=== PATIENT | male | born 1950 | race Native Hawaiian/Other Pacific Islander ===

== ENCOUNTER 2022-08-13 10:33 | Outpatient (CLI) | payer BC ==
[2022-08-13 11:26] LABS: PLATELET COUNT 163 K/uL (142-355)
[2022-08-13 11:27] LABS: POTASSIUM 4.5 mmol/L (3.6-5.2)
== END 2022-08-13 18:52 | disposition home or self-care (01) ==
LOC: LABW 10:33
PROVIDERS: ATTEND Internal Medicine Cardiovascular Disease
DX: E78.49 Other hyperlipidemia (principal); I10 Essential (primary) hypertension
CPT/HCPCS: 36415; 80048; 80061; 80076; 85027

== ENCOUNTER 2022-09-29 09:00 | Outpatient (CLI) | payer BC | END 2022-09-29 16:00 | disposition home or self-care (01) | LOC: RAD 09:00 | PROVIDERS: ATTEND Nurse Practitioner | DX: R06.02 Shortness of breath (principal); R09.02 Hypoxemia ==

== ENCOUNTER 2022-10-08 10:23 | Outpatient (CLI) | payer BC | END 2022-10-08 18:58 | disposition home or self-care (01) | LOC: LABW 10:23 | PROVIDERS: ATTEND Obstetrics & Gynecology Obstetrics | DX: E87.1 Hypo-osmolality and hyponatremia (principal); R41.82 Altered mental status, unspecified | CPT/HCPCS: 36415; 80048; 82525; 84630 ==

== ENCOUNTER 2022-10-18 09:58 | Outpatient (CLI) | payer BC ==
[2022-10-18 10:18] LABS: POTASSIUM 4.9 mmol/L (3.6-5.2)
== END 2022-10-18 20:47 | disposition home or self-care (01) ==
LOC: LABW 09:58
PROVIDERS: ATTEND Obstetrics & Gynecology Obstetrics
DX: E87.1 Hypo-osmolality and hyponatremia (principal)
CPT/HCPCS: 36415; 80048

== ENCOUNTER 2022-10-27 10:21 | Outpatient (CLI) | payer BC ==
[2022-10-27 10:36] LABS: POTASSIUM 4.6 mmol/L (3.6-5.2)
== END 2022-10-27 19:15 | disposition home or self-care (01) ==
LOC: LABW 10:21
PROVIDERS: ATTEND Obstetrics & Gynecology Obstetrics
DX: E87.1 Hypo-osmolality and hyponatremia (principal)
CPT/HCPCS: 36415; 80048

== ENCOUNTER 2022-12-02 21:15 | Emergency (ER) | payer BC ==
[~2022-12-02] VITALS: Ht 177.8 cm; Wt 106.6 kg
[2022-12-02 21:44] LABS: PLATELET COUNT 204 K/uL (142-355)
[2022-12-02 21:51] LABS: POTASSIUM 4.3 mmol/L (3.6-5.2)
[2022-12-02 23:00] VITALS: BP 146/85; TEMP 99
== END 2022-12-02 23:00 | disposition home or self-care (01) ==
LOC: ED 21:15
PROVIDERS: Emergency Medicine
DX: R20.2 Paresthesia of skin (principal); I10 Essential (primary) hypertension; E86.0 Dehydration
CPT/HCPCS: 80053; 83880; 84484; 85027; 93005; 99283

== ENCOUNTER 2023-06-20 10:06 | Outpatient (CLI) | payer BC ==
[2023-06-20 10:28] LABS: POTASSIUM 5.7 mmol/L (3.6-5.2)
== END 2023-06-20 23:00 | disposition home or self-care (01) ==
LOC: LABW 10:06
PROVIDERS: ATTEND Nurse Practitioner
DX: E87.1 Hypo-osmolality and hyponatremia (principal)
CPT/HCPCS: 36415; 80053